=== PATIENT | female | born 1965 | race Caucasian/White ===

== ENCOUNTER 2018-09-04 08:55 | Day surgery (SDC) | payer BC ==
[~2018-09-04 08:55] MED LIST: Lactated Ringers 1,000 ML IV SCH
[2018-09-04] MEDS ORDERED: Midazolam 1 MG/ML 2 ML SDV IVPUSH ONE (09:25)
--- NOTE | 2018-09-04 09:27 | PCM.PREANE ---
Preanesthetic Assessment - Anesthesia/Transfusion/Family Hx Anesthesia History: No Prior Anesthesia Family History of Anesthesia Reaction: No Transfusion History: No Prior Transfusion(s) - Review of Systems General: No Symptoms Pulmonary: No Symptoms Cardiovascular: No Symptoms Gastrointestinal: No Symptoms Neurological: No Symptoms Other: Reports: Anxiety - Physical Assessment NPO Status Date: 09/03/18 Height: 5 ft 7 in Weight: 61.235 kg ASA Class: 1 Mental Status: Alert & Oriented x3 Airway Class: Mallampati = 2 Dentition: Reports: Normal Dentition ROM/Head Extension: Full Lungs: Clear to Auscultation, Normal Respiratory Effort Cardiovascular: Regular Rate, Regular Rhythm - Allergies Allergies/Adverse Reactions: Allergies Allergy/AdvReac Type Severity Reaction Status Date / Time Sulfa (Sulfonamide Allergy Redness Verified 08/30/18 11:36 Antibiotics) - Blood Blood Available: No - Anesthesia Plan Pre-Op Medication Ordered: Anxiolytic - Acknowledgements Anesthesia Type Planned: MAC Pt an Appropriate Candidate for the Planned Anesthesia: Yes Alternatives and Risks of Anesthesia Discussed w Pt/Guardian: Yes Pt/Guardian Understands and Agrees with Anesthesia Plan: Yes PreAnesthesia Questionnaire HEENT History: Reports: Other (See Below) Other HEENT History: wears glasses [employer] HAND History: Reports: Neurological History: Reports: Other (See Below) Other Neuro History: hx of motion sickness Psychiatric History: Reports: Other (See Below) Other Psychiatric History: needle phobia - SUBSTANCE USE Smoking Status *Q: Never Smoker Days Per Week of Alcohol Use: 3 Number of Drinks Per Day: 1 Total Drinks Per Week: 3 Recreational Drug Use History: No - HOME MEDS Home Medications: Home Meds Multivitamin [Daily Multiple Vitamin] 1 tab PO DAILY 08/30/18 [History] - CURRENT (IN HOUSE) MEDS Current Meds: Current Medications Lactated Ringer's (Ringers, Lactated) 1,000 mls @ 125 mls/hr IV ASDIRECTED ANIL Midazolam HCl (Versed 1 Mg/Ml) 1 mg IVPUSH ONETIME ONE Stop: 09/04/18 09:26
[2018-09-04] MEDS ORDERED: Propofol 200 MG/20 ML SDV ONE ×2 (10:21→10:25)
[2018-09-04] MEDS ORDERED: fentaNYL 100 MCG/2 ML SDV ONE (10:21)
[2018-09-04] MEDS ORDERED: Midazolam 1 MG/ML 2 ML SDV ONE (10:21)
[2018-09-04] MEDS ORDERED: Lidocaine 2% 5 ML SDV ONE (10:22)
[2018-09-04] MEDS ORDERED: Lactated Ringers 1,000 ML IV SCH (11:00)
--- NOTE | 2018-09-04 11:01 | PCM.OPNOTE ---
- General Post-Op/Procedure Note Date of Surgery/Procedure: 09/04/18 Operative Procedure(s): Colonoscopy Pre Op Diagnosis: Family history of colon polyps. Desire for colorectal cancer screening. Post-Op Diagnosis: No evidence of neoplasia. Anesthesia Technique: MAC (ASA I) Primary Surgeon: Anthony Blake Condition: Good Free Text/Narrative:: DICTATION [id number] CPT CODE 18910
--- NOTE | 2018-09-04 11:31 | OR ---
SURGEON: Anthony Blake M.D. DATE OF PROCEDURE: 09/04/2018 OPERATION PERFORMED: Colonoscopy. PRIMARY SURGEON: Anthony Blake MD. ANESTHESIA: MAC. [employer] CLASSIFICATION: I. PREOPERATIVE DIAGNOSES: 1. Family history of colon polyps. 2. Desire for colorectal cancer screening. POSTOPERATIVE DIAGNOSIS: No evidence of neoplasia. DESCRIPTION OF PROCEDURE: The patient was taken to the endoscopy room and positioned on the endoscopy table in the left lateral decubitus position. Time-out was called for appropriate identification of the patient and procedure. Monitored anesthesia care was provided. The colonoscope was inserted into the rectum and advanced with minimal difficulty to the cecum, where the colonoscope was retroflexed to visualize the ascending colon from below. The colonoscope was then straightened and slowly withdrawn. The cecum, ascending colon, hepatic flexure, transverse colon, splenic flexure, descending colon, sigmoid colon, and rectum were very well visualized. No tumors, polyps, diverticula, or angiodysplastic changes were noted anywhere in the lower gastrointestinal tract. Once the colonoscope was withdrawn to the rectum, it was retroflexed to visualize the anal orifice from above. No tumors, polyps, or acute hemorrhoidal changes are noted. The colonoscope was then straightened, the rectum was aspirated, and the colonoscope was removed. The patient tolerated the procedure well and was taken to the recovery room in stable condition. SERA BOLES /[id number]
--- NOTE | 2018-09-04 11:48 | PCM48HPAN ---
Post Anesthesia Note - EVALUATION WITHIN 48HRS OF ANESTHETIC Vital Signs in Normal Range: Yes Patient Participated in Evaluation: Yes Respiratory Function Stable: Yes Airway Patent: Yes Cardiovascular Function Stable: Yes Hydration Status Stable: Yes Pain Control Satisfactory: Yes Nausea and Vomiting Control Satisfactory: Yes Mental Status Recovered: Yes Resp Rate: 12
--- NOTE | 2018-09-04 11:48 | PCM.POSTAN ---
POST ANESTHESIA ASSESSMENT - MENTAL STATUS Mental Status: Alert, Oriented - RESPIRATORY Respiratory Status: Respiratory Rate WNL, Airway Patent, O2 Saturation Stable - CARDIOVASCULAR CV Status: Pulse Rate WNL, Blood Pressure Stable - GASTROINTESTINAL GI Status: No Symptoms - POST OP HYDRATION Hydration Status: Adequate & Stable
== END 2018-09-04 11:50 | disposition home or self-care (01) ==
LOC: MW.SDS 08:55
PROVIDERS: ATTEND Surgery
DX: Z12.11 Encounter for screening for malignant neoplasm of colon (principal); Z83.71 Family history of colonic polyps; Z88.2 Allergy status to sulfonamides
CPT/HCPCS: 45378; 81025; J2001; J2250; J2704; J3010; J7120